=== PATIENT | female | born 1980 | race African-American/Black ===

== ENCOUNTER 2019-09-06 23:42 | Emergency (ER) | payer OTHER ==
[~2019-09-06] VITALS: Ht 152.4 cm; Wt 79.4 kg
[2019-09-07] MEDS ORDERED: HYDROCHLOROT12.5 M1 PO (00:12)
[2019-09-07] MEDS ORDERED: PHENTERMINE37.5 MG PO (00:12)
[2019-09-07 00:25] LABS: PLATELET COUNT 303 K/uL (152-353)
[2019-09-07 00:36] LABS: POTASSIUM 3.5 mmol/L (3.6-5.2); SODIUM 141 mmol/L (136-145)
[2019-09-07 01:09] VITALS: BP 139/88; TEMP 97.9
== END 2019-09-07 01:22 | disposition home or self-care (01) ==
LOC: ED 23:42
PROVIDERS: Emergency Medicine
DX: K21.9 Gastro-esophageal reflux disease without esophagitis (principal); F41.9 Anxiety disorder, unspecified; R00.0 Tachycardia, unspecified
CPT/HCPCS: 36415; 80053; 82150; 83690; 84484; 85027; 93005; 96374; 99284; J3490

== ENCOUNTER 2020-05-29 20:30 | Emergency (ER) | payer OTHER ==
[~2020-05-29] VITALS: Ht 152.4 cm; Wt 84.8 kg
[~2020-05-29 20:30] MED LIST: HYDROCHLOROT12.5 M1 PO; PHENTERMINE37.5 MG PO
[2020-05-29 22:27] VITALS: BP 123/91; TEMP 98.1
== END 2020-05-29 22:27 | disposition home or self-care (01) ==
LOC: ED 20:30
DX: J30.89 Other allergic rhinitis (principal)
CPT/HCPCS: 87502; 87651; 96372; 99283; J1020